=== PATIENT | female | born 1945 | race Caucasian/White ===

== ENCOUNTER → 2016-12-25 | Outpatient (CLI) | payer BC ==
[~2016-12-25] MED LIST: ACET-1311 PO; AMLO-110 PO; AMX500 PO; ASPI-427 PO; ATOR10TA88 PO; BNC40 PO; CHOL4POW11 PO; CHOLTAB3 PO; CIPR-255 PO; CZR50 PO; MELO15TA4 PO; OMEG5CAP PO; OXYC-57 PO; POTA1080 PO; PRLSR20 PO; TAMS0.4C38 PO; WHEAPOW13 PO
[2016-12-25 13:39] LABS: ALT/SGPT 24 U/L (12-78); AST/SGOT 16 U/L (15-37); BLOOD UREA NITROGEN 28 mg/dl (7-18); BUN/CREATININE RATIO 34.3 (10-20); CALCIUM 9.5 mg/dl (8.5-10.1); CARBON DIOXIDE 28 mmol/L (21-32); CHLORIDE 107 mmol/L (98-107); CHOLESTEROL 163 mg/dl (0-200); CREATININE 0.83 mg/dl (0.60-1.20); GLUCOSE 98 mg/dl (70-99); POTASSIUM 4.2 mmol/L (3.5-5.1); SODIUM 144 mmol/L (136-145)
[2016-12-25 13:48] LABS: CHOLESTEROL/HDL RATIO 2.1; HDL CHOLESTEROL 77 mg/dl; LDL CHOLESTEROL CALCULATED 52 mg/dl; TRIGLYCERIDES 169 mg/dl (0-150); VERY LOW DENSITY LIPOPROT CALC 34 mg/dl
== END | disposition home or self-care (01) ==
LOC: C.LABMFLN 12:03
PROVIDERS: ATTEND Family Medicine
DX: I10 Essential (primary) hypertension (principal); E78.5 Hyperlipidemia, unspecified

== ENCOUNTER → 2017-02-21 | Outpatient (CLI) | payer BC ==
[~2017-02-21] MED LIST changes: +ATOR10TA82 PO; -ATOR10TA88 PO
[2017-02-21 17:53] LABS: URINE COLOR ORANGE
[2017-02-21 17:54] LABS: SULFASALICYLIC ACID POS (NEG); URINE APPEARANCE CLOUDY (CLEAR)
[2017-02-21 17:55] LABS: MANUAL MICROSCOPIC REQUIRED? YES; REVIEW REQ? NO
[2017-02-21 17:56] LABS: URINE WBC >30 /hpf (0-5)
[2017-02-21 17:58] LABS: URINE BACTERIA 2+ (NEG)
== END | disposition home or self-care (01) ==
LOC: C.LABMFLN 13:53
PROVIDERS: ATTEND Family Medicine
DX: R39.15 Urgency of urination (principal)

== ENCOUNTER → 2017-04-16 | Outpatient (CLI) | payer BC ==
[2017-04-16 18:56] LABS: ALB/GLOB RATIO 1.1 (0.9-2); ALKALINE PHOSPHATASE 96 U/L (45-117); ALT/SGPT 29 U/L (12-78); AST/SGOT 25 U/L (15-37); BLOOD UREA NITROGEN 20 mg/dl (7-18); BUN/CREATININE RATIO 28.7 (10-20); CALCIUM 9.2 mg/dl (8.5-10.1); CARBON DIOXIDE 27 mmol/L (21-32); CHLORIDE 108 mmol/L (98-107); CHOLESTEROL 166 mg/dl (0-200); CREATININE 0.69 mg/dl (0.60-1.20); GLUCOSE 91 mg/dl (70-99); HDL CHOLESTEROL 85 mg/dl; LDL CHOLESTEROL CALCULATED 53 mg/dl; SODIUM 143 mmol/L (136-145); TRIGLYCERIDES 138 mg/dl (0-150); VERY LOW DENSITY LIPOPROT CALC 28 mg/dl
== END | disposition home or self-care (01) ==
LOC: C.LABMFLN 12:32
PROVIDERS: ATTEND Family Medicine
DX: I10 Essential (primary) hypertension (principal); E78.5 Hyperlipidemia, unspecified; M16.9 Osteoarthritis of hip, unspecified

== ENCOUNTER → 2017-06-11 | Outpatient (CLI) | payer BC ==
[~2017-06-11] MED LIST changes: -ATOR10TA82 PO; +ATOR10TA88 PO
[2017-06-11 17:59] LABS: BASO % 0.5 %; BASO ABS # 0.03 K/uL (0-0.2); COMPLETE YES; EOS % 2.7 %; HEMATOCRIT 41.7 % (37-47); IG% 0.2 %; LYMPH % 24.6 %; LYMPH ABS # 1.56 K/uL (1.2-3.4); MEAN CELL VOLUME 90.5 fL (80-100); MEAN CORPUSCULAR HEMOGLOBIN 29.9 pg (25-34); MEAN CORPUSCULAR HGB CONC 33.1 g/dl (32-36); MEAN PLATELET VOLUME 10.6 fL (7.4-10.4); MONO % 9.8 %; NEUT % 62.2 %; PLATELET COUNT 337 K/uL (130-400); RED BLOOD COUNT 4.61 M/uL (4.2-5.4); WHITE BLOOD COUNT 6.33 K/uL (4.8-10.8)
[2017-06-11 18:01] LABS: URINE APPEARANCE CLEAR (CLEAR); URINE BILIRUBIN NEG (NEG); URINE COLOR DK YELLOW; URINE EPITHELIAL CELL AUTO >30 /lpf (0-5); URINE NITRITE NEG (NEG); URINE SPECIFIC GRAVITY 1.025 (1.000-1.030); UROBILINOGEN NEG (NEG)
[2017-06-11 18:02] LABS: BLOOD UREA NITROGEN 21 mg/dl (7-18); BUN/CREATININE RATIO 25.4 (10-20); CALCIUM 9.5 mg/dl (8.5-10.1); CARBON DIOXIDE 27 mmol/L (21-32); CHLORIDE 104 mmol/L (98-107); CREATININE 0.83 mg/dl (0.60-1.20); GLUCOSE 103 mg/dl (70-99); POTASSIUM 3.8 mmol/L (3.5-5.1); SODIUM 139 mmol/L (136-145)
[2017-06-11 18:09] LABS: MANUAL MICROSCOPIC REQUIRED? NO; REVIEW REQ? YES
[2017-06-11 18:26] LABS: URINE MUCUS PRESENT (NONE PRSENT)
== END | disposition home or self-care (01) ==
LOC: C.LABMFLN 15:43
PROVIDERS: ATTEND Urology
DX: N20.0 Calculus of kidney (principal)

== ENCOUNTER → 2017-06-20 | Day surgery (SDC) | payer BC ==
[2017-06-12 13:51] VITALS: Ht 162.6 cm; Wt 106.4 kg
--- NOTE | 2017-06-17 11:46 | PAT Medication Instructions ---
Service Date Jun 17, 2017. Current Home Medication List Acetaminophen (Tylenol), 650 MG PO QID PRN for Pain Amlodipine (Norvasc), 5 MG PO NOON Amoxicillin (Amoxicillin), 2,000 MG PO UD PRN for PROPHALAXIS Aspirin (Ecotrin Regular Strength), 325 MG PO ON HOLD Atorvastatin (Lipitor), 10 MG PO QPM Cholestyramine (Questran), 1 DOSE PO QAM Ergocalciferol (Vitamin D), 400 INTER.UNIT PO 2XWK Losartan Potassium (Losartan Potassium), 50 MG PO NOON Meloxicam (Meloxicam), 15 MG PO ON HOLD [place]-3 Fatty Acids (Fish Oil 1200 mg), 2 CAP PO ON HOLD Omeprazole (Prilosec), 20 MG PO QAM Oxycodone/Acetaminophen 5MG/325MG (Percocet 5MG/325MG), 1-2 TABLETS PO Q4H PRN for Pain Potassium Citrate (Alkalinizer (Potassium Citrate ER), 3 TAB PO BID Tamsulosin Hcl (Flomax), 0.4 MG PO QAM Wheat Dextrin (Benefiber), 2 TSP PO DAILY Medication Instructions For Your Scheduled Surgery - On hold per surgeon's instructions: Meloxicam (Meloxicam), 15 MG PO ON HOLD [place]-3 Fatty Acids (Fish Oil 1200 mg), 2 CAP PO ON HOLD Aspirin (Ecotrin Regular Strength), 325 MG PO ON HOLD -Continue as directed: Ergocalciferol (Vitamin D), 400 INTER.UNIT PO 2XWK - Hold the following medications 24 hours prior to surgery: Cholestyramine (Questran), 1 DOSE PO QAM - Hold the following medications the morning of surgery: Losartan Potassium (Losartan Potassium), 50 MG PO NOON Wheat Dextrin (Benefiber), 2 TSP PO DAILY Potassium Citrate (Alkalinizer (Potassium Citrate ER), 3 TAB PO BID - Take the following medications the morning of surgery with a sip of water OTHERWISE NOTHING TO EAT OR DRINK AFTER MIDNIGHT: Acetaminophen (Tylenol), 650 MG PO QID PRN for Pain (may take up to 4 hours prior to surgery if needed) Oxycodone/Acetaminophen 5MG/325MG (Percocet 5MG/325MG), 1-2 TABLETS PO Q4H PRN for Pain (may take up to 4 hours prior to surgery if needed) Amlodipine (Norvasc), 5 MG PO NOON (time permitting) Omeprazole (Prilosec), 20 MG PO QAM Tamsulosin Hcl (Flomax), 0.4 MG PO QAM - Take the following medications as scheduled the night before surgery: Acetaminophen (Tylenol), 650 MG PO QID PRN for Pain Atorvastatin (Lipitor), 10 MG PO QPM Potassium Citrate (Alkalinizer (Potassium Citrate ER), 3 TAB PO BID Oxycodone/Acetaminophen 5MG/325MG (Percocet 5MG/325MG), 1-2 TABLETS PO Q4H PRN for Pain If you have any questions please call us at [phone] or [phone] or [phone]
--- NOTE | 2017-06-17 13:03 | DIAGNOSTIC IMAGING REPORT ---
CHEST PREADMISSION(PA/LAT) HISTORY: Preop. COMPARISON: Chest 01/16/2016. FINDINGS: The lungs are clear. Cardiac silhouette is normal in size. No pleural effusions. No pneumothorax. IMPRESSION: No acute process. Electronically signed by: Hima Rao M.D. 06/17/2017 1:02 PM Dictated Date/Time: 06/17/2017 1:01 PM
[2017-06-17 13:08] LABS: HEMATOCRIT 42.2 % (37-47); MEAN CELL VOLUME 90.2 fL (80-100); MEAN CORPUSCULAR HEMOGLOBIN 29.1 pg (25-34); MEAN CORPUSCULAR HGB CONC 32.2 g/dl (32-36); MEAN PLATELET VOLUME 10.4 fL (7.4-10.4); PLATELET COUNT 339 K/uL (130-400); RED BLOOD COUNT 4.68 M/uL (4.2-5.4); WHITE BLOOD COUNT 8.83 K/uL (4.8-10.8)
[2017-06-17 13:36] LABS: URINE APPEARANCE CLEAR (CLEAR); URINE BILIRUBIN NEG (NEG); URINE COLOR YELLOW; URINE NITRITE NEG (NEG); URINE PH 5.5 (4.5-7.5); URINE SPECIFIC GRAVITY 1.026 (1.000-1.030); UROBILINOGEN NEG (NEG)
[2017-06-17 13:46] LABS: MANUAL MICROSCOPIC REQUIRED? NO; REVIEW REQ? NO
[2017-06-17 14:10] LABS: CREATININE 0.71 mg/dl (0.60-1.20)
[~2017-06-20] VITALS: Ht 162.6 cm; Wt 106.4 kg
[~2017-06-20] MED LIST changes: +ATROPINE SULFATE 0.1 MG/ML 5ML SYR IV PRN; -BNC40 PO; -CIPR-255 PO; +CIPROFLOXACIN 400MG / D5W IV SCH; +DEXAMETHASONE SOD INJ 4 MG/ML VIAL IV PRN; +DEXAMETHASONE SOD INJ 4 MG/ML VIAL ONE; +EpHEDrine SULFATE INJ 50 MG/ML AMP IV PRN; +FENTANYL CITRATE INJ 50 MCG/1 ML 2 ML VIAL IV PRN; +FENTANYL CITRATE INJ 50 MCG/1 ML 2 ML VIAL ONE; +KETOROLAC TROMETHAMINE 15 MG/ML VIAL IV. PRN; +KETOROLAC TROMETHAMINE 30 MG/ML VIAL ONE; +LABETALOL HCL IV 5 MG/ML 20ML IV PRN; +LACTATED RINGER'S 1000ML 1,000 ML IV SCH; +LIDOCAINE HCL 2% 2 ML VIAL (20MG/ML) ONE; +METOCLOPRAMIDE HCL INJ 5 MG/ML 2 ML VIAL IV PRN; +MIDAZOLAM HCL 1 MG/ML 2ML VIAL ONE; +MoRPHine SULFATE 10 MG/ML CARP/VIAL IV PRN; +ONDANSETRON INJ 2 MG/ML 2 ML VIAL IV PRN; +ONDANSETRON INJ 2 MG/ML 2 ML VIAL ONE; +OXYCODONE/ACETAMINOPHEN 5-325 TAB PO PRN; +PHENYLEPHRINE 100MCG/ML 5ML SYR IV PRN; +PROPOFOL IV EMULSION 10 MG/ML 20 ML VIAL IV ONE
--- NOTE | 2017-06-20 09:00 | History & Physical Bridge Note ---
H&P Re-Evaluation Bridge Note: I have examined the patient, reviewed the History & Physical and in the interval since the performance of the History & Physical I have noted the following changes of clinical significance: No changes noted
--- NOTE | 2017-06-20 09:51 | Discharge Instructions-SurgCtr ---
Discharge Instructions Date of Service Jun 20, 2017. Visit Reason for Visit: Stones Discharge Discharge Diagnosis / Problem: URETERAL STONE Discharge Goals Goal(s): Therapeutic intervention Medications Stopped Medications Name(s): meloxicam, fish oil, ASA all stopped more than a week ago Activity Recommendations Activity Limitations: resume your previous activity (TAKE IT EASY TODAY) MEDICATIONS: Resume previous medications unless instructed otherwise by your surgeon. Resume pre-ES[facility] medication except for aspirin, coumadin or other blood thinners. __ Toradol 10 mg every 6 hours for initial pain. __ Lortab 5 mg 1-2 every 4 hours for pain. _X_ Percocet 5 mg 1-2 every 4 hours for pain. __ Macrodantin 50 mg x 3 a day. __ Flomax 1 tab daily one half (1/2) hour after supper. SPECIAL CARE INSTRUCTIONS: 1. Get KUB (x-ray) _X_ day before or day of office visit and bring x-ray to office __ get x-ray 2 days before and tell office you are getting x-rays when you call for the appointment. 2. Strain ALL urine. 3. Please call if you have a fever, chills, severe pain, or constant dribbling of urine. 4. Office phone number . FOLLOW UP VISIT: Please call the office to schedule a follow-up appointment at . Anesthesia . Post Anesthesia Instructions: If you have had General Anesthesia or IV Sedation: * Do not drive today. * Resume driving when surgeon permits. * Do not make important decisions or sign legal documents today. * Call surgeon for: 1. Temperature elevations greater than 101 degrees F. 2. Uncontrollable pain. 3. Excessive bleeding. 4. Persistent nausea and vomiting. 5. Medication intolerance (nausea, vomiting or rash). * For nausea and vomiting use only clear liquids such as: tea, soda, bouillon until nausea subsides, then gradually increase diet as tolerated. * If you have any concerns or questions, call your surgeon's office. If physician is unavailable and it is an emergency, call 911 or go to the nearest emergency room. . Diet Recommendations Home Diet: resume previous diet Pending Studies Studies pending at discharge: no Medical Emergencies . Who to Call and When: Medical Emergencies: If at any time you feel your situation is an emergency, please call 911 immediately. . Non-Emergent Contact Non-Emergency issues call your: Urologist Call Non-Emergent contact if: temperature is above 101.5, your pain is not controlled . . "Provider Documentation" section prepared by Ortega Romero. . [place] Drug Monitoring Program Search Results: patient reviewed within database
--- NOTE | 2017-06-20 09:53 | [facility] Operative Report ---
Operative Report Operative Date Jun 20, 2017. Pre-Operative Diagnosis RIGHT UPJ STONE Post-Operative Diagnosis SAME Procedure(s) Performed RIGHT ESWL Surgeon ILAN Paint And Table Edger Surgeon(s) NONE Estimated Blood Loss NONE Findings RIGHT UPJ STONE Specimens NONE Drains NONE Anesthesia GENERAL Complication(s) None Disposition Recovery Room / PACU Indications RIGHT UPJ STONE Description of Procedure Patient was identified in the preoperative holding area, appropriate informed consent was reviewed and completed and the patient was transported to the operating suite. Upon arrival appropriate preoperative antibiotics were administered and general anesthesia induced. The patient was placed in supine position and the stone was localized under fluoroscopy. A total of [_2500__] shocks were delivered to the stone. There appeared to be good fragmentation of the stone. Details of this procedure can be found on the [facility] information sheet. At the conclusion of the case the patient was extubated and taken to the PACU in stable condition. There were no complications. I attest to the content of the Intraoperative Record and any orders documented therein. Any exceptions are noted below.
[2017-06-20 11:18] VITALS: TEMP 36.7
[2017-06-20 11:39] VITALS: BP 133/80; PULSE 87; O2SAT 96
--- NOTE | 2017-06-20 11:42 | Anesthesia Progress Nt - [facility] ---
Anesthesia Post Op Note Date & Time Jun 20, 2017 at 11:42 Vital Signs Pain Intensity: 0 Vital Signs Past 12 Hours Date Time Temp Pulse Resp B/P (MAP) Pulse Ox O2 Delivery O2 Flow Rate FiO2 06/20/17 11:39 87 20 133/80 (97) 96 Room Air 06/20/17 11:18 36.7 88 20 121/70 (87) 97 Room Air 06/20/17 11:11 78 12 131/65 96 06/20/17 11:11 76 12 06/20/17 11:09 36.6 72 12 131/65 96 Room Air 06/20/17 11:06 68 14 129/64 94 06/20/17 11:06 68 14 06/20/17 11:01 77 17 128/74 93 06/20/17 11:01 78 17 06/20/17 10:56 71 10 126/69 99 06/20/17 10:56 71 10 06/20/17 10:51 72 16 06/20/17 10:51 71 16 127/69 98 06/20/17 10:46 72 18 06/20/17 10:46 69 18 129/66 99 06/20/17 10:41 70 14 128/72 99 06/20/17 10:41 70 14 06/20/17 10:36 80 24 06/20/17 10:36 81 24 132/73 99 06/20/17 10:31 88 133/69 97 06/20/17 10:31 88 06/20/17 10:31 36.5 81 12 133/69 99 Mask 6 06/20/17 07:59 36.5 103 20 160/89 (112) 94 Room Air Notes Mental Status: alert / awake / arousable, participated in evaluation Pt Amnestic to Procedure: Yes Nausea / Vomiting: adequately controlled Pain: adequately controlled Airway Patency, RR, SpO2: stable & adequate BP & HR: stable & adequate Hydration State: stable & adequate Anesthetic Complications: no major complications apparent
== END | disposition home or self-care (01) ==
LOC: X.SURG 07:39
PROVIDERS: ATTEND Urology
DX: N20.1 Calculus of ureter (principal); I10 Essential (primary) hypertension; E78.5 Hyperlipidemia, unspecified; K21.9 Gastro-esophageal reflux disease without esophagitis; Z79.82 Long term (current) use of aspirin; Z79.899 Other long term (current) drug therapy

== ENCOUNTER → 2017-06-25 | Outpatient (CLI) | payer BC ==
[~2017-06-25] MED LIST changes: -ATROPINE SULFATE 0.1 MG/ML 5ML SYR IV PRN; -CIPROFLOXACIN 400MG / D5W IV SCH; -DEXAMETHASONE SOD INJ 4 MG/ML VIAL IV PRN; -DEXAMETHASONE SOD INJ 4 MG/ML VIAL ONE; -EpHEDrine SULFATE INJ 50 MG/ML AMP IV PRN; -FENTANYL CITRATE INJ 50 MCG/1 ML 2 ML VIAL IV PRN; -FENTANYL CITRATE INJ 50 MCG/1 ML 2 ML VIAL ONE; -KETOROLAC TROMETHAMINE 15 MG/ML VIAL IV. PRN; -KETOROLAC TROMETHAMINE 30 MG/ML VIAL ONE; -LABETALOL HCL IV 5 MG/ML 20ML IV PRN; -LACTATED RINGER'S 1000ML 1,000 ML IV SCH; -LIDOCAINE HCL 2% 2 ML VIAL (20MG/ML) ONE; -METOCLOPRAMIDE HCL INJ 5 MG/ML 2 ML VIAL IV PRN; -MIDAZOLAM HCL 1 MG/ML 2ML VIAL ONE; -MoRPHine SULFATE 10 MG/ML CARP/VIAL IV PRN; -ONDANSETRON INJ 2 MG/ML 2 ML VIAL IV PRN; -ONDANSETRON INJ 2 MG/ML 2 ML VIAL ONE; -OXYCODONE/ACETAMINOPHEN 5-325 TAB PO PRN; -PHENYLEPHRINE 100MCG/ML 5ML SYR IV PRN; -PROPOFOL IV EMULSION 10 MG/ML 20 ML VIAL IV ONE
== END | disposition home or self-care (01) ==
LOC: C.LABMFLN 12:09
PROVIDERS: ATTEND Family Medicine
DX: N23 Unspecified renal colic (principal)

== ENCOUNTER → 2017-07-02 | Outpatient (CLI) | payer BC | END | disposition home or self-care (01) | LOC: C.LABSPEC 10:54 | PROVIDERS: ATTEND Urology | DX: N20.0 Calculus of kidney (principal) ==

== ENCOUNTER → 2017-07-30 | Outpatient (CLI) | payer BC ==
[2017-07-30 18:23] LABS: ALT/SGPT 22 U/L (12-78); BLOOD UREA NITROGEN 22 mg/dl (7-18); CALCIUM 9.7 mg/dl (8.5-10.1); CARBON DIOXIDE 30 mmol/L (21-32); CHLORIDE 105 mmol/L (98-107); CHOLESTEROL 147 mg/dl (0-200); CREATININE 0.74 mg/dl (0.60-1.20); GLUCOSE 97 mg/dl (70-99); POTASSIUM 3.9 mmol/L (3.5-5.1); SODIUM 140 mmol/L (136-145)
[2017-07-30 18:26] LABS: ALB/GLOB RATIO 1.1 (0.9-2); ALKALINE PHOSPHATASE 98 U/L (45-117); AST/SGOT 20 U/L (15-37); CHOLESTEROL/HDL RATIO 1.9; HDL CHOLESTEROL 78 mg/dl; LDL CHOLESTEROL CALCULATED 44 mg/dl; TRIGLYCERIDES 123 mg/dl (0-150); VERY LOW DENSITY LIPOPROT CALC 25 mg/dl
== END | disposition home or self-care (01) ==
LOC: C.LABMFLN 12:10
PROVIDERS: ATTEND Family Medicine
DX: I10 Essential (primary) hypertension (principal); E78.5 Hyperlipidemia, unspecified

== ENCOUNTER → 2017-09-08 | Outpatient (CLI) | payer BC ==
[~2017-09-08] MED LIST changes: +ATOR10TA82 PO; -ATOR10TA88 PO
== END | disposition home or self-care (01) ==
LOC: C.RDSM 16:02
PROVIDERS: ATTEND Physical Medicine & Rehabilitation Sports Medicine
DX: M25.551 Pain in right hip (principal); M25.552 Pain in left hip

== ENCOUNTER 2017-12-16 06:04 | Inpatient (IN) | payer BC, OTHER ==
[2017-11-20 14:58] VITALS: BMI 35.0
--- NOTE | 2017-11-20 15:24 | PAT Medication Instructions ---
Service Date Nov 20, 2017. Current Home Medication List Acetaminophen (Tylenol Arthritis Ext Rel), 1,300 MG PO Q8H PRN for PRN Amlodipine (Norvasc), 5 MG PO QAM Amoxicillin (Amoxicillin), 2,000 MG PO UD PRN for PROPHALAXIS Aspirin (Ecotrin Regular Strength), 325-650 MG PO PRN Atorvastatin (Lipitor), 10 MG PO QPM Cholestyramine (Questran), 1 DOSE PO QAM Losartan Potassium (Losartan Potassium), 50 MG PO QAM Meloxicam (Meloxicam), 15 MG PO NOON Mirabegron (Myrbetriq Er), 50 MG PO QPM [place]-3 Fatty Acids (Fish Oil 1200 mg), 1 CAP PO QAM Omeprazole (Prilosec), 20 MG PO QAM Potassium Citrate (Alkalinizer (Potassium Citrate ER), 3 TAB PO BID Wheat Dextrin (Benefiber), 2 TSP PO DAILY PRN for PRN [Vitamin D3], 400 UNITS PO TUES/THURS Medication Instructions For Your Scheduled Surgery - Hold the following medications 2 weeks prior to surgery: [place]-3 Fatty Acids (Fish Oil 1200 mg), 1 CAP PO QAM - Check with surgeon for instructions: Meloxicam (Meloxicam), 15 MG PO NOON Aspirin (Ecotrin Regular Strength), 325-650 MG PO PRN - Hold the following medications the morning of surgery: Cholestyramine (Questran), 1 DOSE PO QAM Losartan Potassium (Losartan Potassium), 50 MG PO QAM Potassium Citrate (Alkalinizer (Potassium Citrate ER), 3 TAB PO BID Wheat Dextrin (Benefiber), 2 TSP PO DAILY PRN for PRN [Vitamin D3], 400 UNITS PO TUES/THURS Amoxicillin (Amoxicillin), 2,000 MG PO UD PRN for PROPHALAXIS - Take the following medications the morning of surgery with a sip of water: Omeprazole (Prilosec), 20 MG PO QAM Amlodipine (Norvasc), 5 MG PO QAM Acetaminophen (Tylenol Arthritis Ext Rel), 1,300 MG PO Q8H PRN for PRN (okay to take up to 4 hours prior to surgery if needed) - Take the following medications as scheduled the night before surgery: Wheat Dextrin (Benefiber), 2 TSP PO DAILY PRN for PRN (if needed) Potassium Citrate (Alkalinizer (Potassium Citrate ER), 3 TAB PO BID Mirabegron (Myrbetriq Er), 50 MG PO QPM Atorvastatin (Lipitor), 10 MG PO QPM Acetaminophen (Tylenol Arthritis Ext Rel), 1,300 MG PO Q8H PRN for PRN (if needed) Amoxicillin (Amoxicillin), 2,000 MG PO UD PRN for PROPHALAXIS (if needed) If you have any questions please call us at [phone] or [phone] or [phone]
[2017-11-20 16:13] LABS: BASO ABS # 0.07 K/uL (0-0.2); EOS % 2.3 %; EOS ABS # 0.16 K/uL (0-0.5); HEMATOCRIT 44.3 % (37-47); HEMOGLOBIN 14.9 g/dL (12.0-16.0); IG# 0.01 K/uL (0.00-0.02); LYMPH % 24.8 %; LYMPH ABS # 1.72 K/uL (1.2-3.4); MEAN CELL VOLUME 91.3 fL (80-100); MEAN CORPUSCULAR HEMOGLOBIN 30.7 pg (25-34); MEAN CORPUSCULAR HGB CONC 33.6 g/dl (32-36); MEAN PLATELET VOLUME 10.6 fL (7.4-10.4); MONO % 6.8 %; MONO ABS # 0.47 K/uL (0.11-0.59); NEUT ABS # 4.51 K/uL (1.4-6.5); PLATELET COUNT 247 K/uL (130-400); RED CELL DISTRIBUTION WIDTH CV 13.6 % (11.5-14.5); WHITE BLOOD COUNT 6.94 K/uL (4.8-10.8)
[2017-11-20 16:24] LABS: PTT PATIENT 26.8 SECONDS (21.0-31.0)
[2017-11-20 16:35] LABS: CALCIUM 9.7 mg/dl (8.5-10.1); CREATININE 0.69 mg/dl (0.60-1.20); POTASSIUM 3.9 mmol/L (3.5-5.1)
--- NOTE | 2017-11-24 15:58 | HISTORY & PHYSICAL EXAMINATION ---
DATE OF ADMISSION: 12/17/2017 CHIEF COMPLAINT: Left hip pain. HISTORY OF PRESENT ILLNESS: This 72-year-old white female presented to the office with complaints of bilateral hip pain, left being worse. Her hip pain is longstanding and has been present for several years. At this point, she is chair bound due to arthritis. Pain is anterior and is worse with any attempted motion or weightbearing. Pain is affecting her ADLs. She elects to proceed with total hip arthroplasty on the left in hopes of improving her mobility and alleviating her pain. Preoperative imaging has been obtained. She has undergone previous total knee arthroplasties successfully. PAST MEDICAL HISTORY: Significant for hypertension, elevated cholesterol, osteoarthritis, low back pain, neck pain, GERD, obesity, and a history of kidney stones. PREVIOUS SURGERIES: Bilateral total knee arthroplasties in November 2002, cholecystectomy in August 2003, ureteroscopy in June 2001 and May 2015, lithotripsy in June 2017 and breast biopsy in September 2007. SOCIAL HISTORY: The patient is retired. No tobacco use and no ETOH use. ALLERGIES: NKDA. FAMILY HISTORY: Noncontributory. CURRENT MEDICATIONS: Tylenol extra strength q. 6 hours p.r.n., amlodipine 5 mg p.o. daily, aspirin 325 mg p.o. daily, atorvastatin 10 mg p.o. daily, vitamin D daily, cholestyramine 4 grams p.o. daily, losartan 50 mg p.o. daily, meloxicam 15 mg p.o. daily, mirabegron 50 mg p.o. daily, Prilosec 20 mg p.o. daily, potassium citrate daily, and Benefiber daily. REVIEW OF SYSTEMS: Significant for above stated conditions, otherwise unremarkable. PHYSICAL EXAMINATION: GENERAL: Well-developed and well-nourished elderly white female, in no acute distress. Sitting in a wheelchair. Alert and oriented. SKIN: Warm and dry with fair turgor. No rashes or lesions. No ecchymosis or erythema. HEENT: Normocephalic and atraumatic. Eyes: PERRLA and EOMI. Nares patent bilaterally without turbinate enlargement. Oropharynx is without erythema or exudate. No lesions noted. Uvula midline. Oral mucosa moist. Fair dentition. HEART: RRR. No MGR. LUNGS: Clear to auscultation bilaterally. No crackles, rhonchi or wheezing. Good air movement. ABDOMEN: Obese. Bowel sounds present x4. Soft and nontender. No organomegaly. No masses. MUSCULOSKELETAL: Left hip has no obvious asymmetry or deformity. She has very limited motion secondary to pain. Flexion is only to 90 degrees. She is able to stand. Very little internal or external rotation secondary to pain and stiffness. Intact motion to the knee without difficulty. NEUROLOGIC: Cranial nerves II through XII are intact. Gross sensation is intact across the lower extremities by soft touch. DATA: Radiographic imaging previously obtained shows endstage DJD of both hips with marked chondrocalcinosis about the hip joint. Significant periarticular osteophytes and subchondral sclerosis were also present. IMPRESSION: Left hip end-stage degenerative joint disease. PLAN: Postoperative prescriptions for Percocet and Coumadin will be provided at discharge from the hospital. Anticipate discharge to home with home health services and then outpatient PT. She will obtain medical clearance from her PCP, Dr. Martin. Preoperative lab work, EKG, and chest x-ray have been ordered. She has been attempting to lose weight and has lost about 18 pounds since early October. She will continue to try weight management. Informed written consent to proceed with left total hip arthroplasty may be obtained on the day of surgery.
[~2017-12-16] VITALS: Ht 162.6 cm; Wt 90.5 kg
[2017-12-16] VITALS (9 sets, daily range): BP systolic 112–140; BP diastolic 65–80; PULSE 97–108; TEMP 36.6–36.8; O2SAT 97–100; Ht 162.6 cm; Wt 90.5 kg
[~2017-12-16 06:04] MED LIST changes: -ACET-1311 PO; +ACET-1487 PO; +CEFAZOLIN 2000MG IV PUSH 15 ML IV SCH; -CHOLTAB3 PO; +LACTATED RINGER'S 1000ML 1,000 ML IV SCH; +LACTATED RINGER'S 1000ML 500 ML IV SCH; +LACTATED RINGER'S 1000ML IV SCH; +MIRA1TAB3 PO; -OXYC-57 PO; -TAMS0.4C38 PO; +TRANEXAMIC ACID INJ 1,000 MG in SYRINGE 0 ML IV SCH; +VITAMIN D3 PO
[2017-12-16] MEDS ORDERED: BUPIVACAINE 0.5 % 5 MG/1 ML PF 10ML VIAL ONE (06:33)
--- NOTE | 2017-12-16 06:37 | History & Physical Bridge Note ---
H&P Re-Evaluation Bridge Note: I have examined the patient, reviewed the History & Physical and in the interval since the performance of the History & Physical I have noted the following changes of clinical significance:consent obtained,all questions answered. No changes noted
[2017-12-16] MEDS ORDERED: LIDOCAINE HCL 2% 2 ML VIAL (20MG/ML) ONE (07:36)
[2017-12-16] MEDS ORDERED: ONDANSETRON INJ 2 MG/ML 2 ML VIAL ONE (07:36)
[2017-12-16] MEDS ORDERED: PROPOFOL IV EMULSION 10 MG/ML 20 ML VIAL IV ONE ×2 (07:36→10:48)
[2017-12-16] MEDS ORDERED: DEXAMETHASONE SOD INJ 4 MG/ML VIAL ONE (07:36)
[2017-12-16] MEDS ORDERED: MIDAZOLAM HCL 1 MG/ML 2ML VIAL ONE ×3 (07:37→09:10)
[2017-12-16] MEDS ORDERED: FENTANYL CITRATE INJ 50 MCG/1 ML 2 ML VIAL ONE (07:37)
[2017-12-16] MEDS ORDERED: POVIDONE-IODINE OP SOLN 30 ML BTL ONE (08:41)
[2017-12-16] MEDS ORDERED: ORTHO JOINT ANESTHETIC ONE (08:41)
[2017-12-16] MEDS ORDERED: ONDANSETRON INJ 2 MG/ML 2 ML VIAL IV PRN (08:45)
[2017-12-16] MEDS ORDERED: PHENYLEPHRINE 100MCG/ML 5ML SYR IV PRN (08:45)
[2017-12-16] MEDS ORDERED: EpHEDrine SULFATE INJ 50 MG/ML AMP IV PRN (08:45)
[2017-12-16] MEDS ORDERED: FLUMAZENIL 0.1 MG/1 ML 10 ML VIAL IV PRN (08:45)
[2017-12-16] MEDS ORDERED: ATROPINE SULFATE 0.1 MG/ML 5ML SYR IV PRN (08:45)
[2017-12-16] MEDS ORDERED: LABETALOL HCL IV 5 MG/ML 20ML IV PRN (08:45)
[2017-12-16] MEDS ORDERED: NALOXONE HCL 0.4 MG/1 ML VIAL/CARP IV PRN (08:45)
[2017-12-16] MEDS ORDERED: FENTANYL CITRATE INJ 50 MCG/1 ML 2 ML VIAL IV PRN (08:45)
[2017-12-16] MEDS ORDERED: HYDROmorphone INJ 2 MG/ML SYR/VIAL IV PRN (08:45)
[2017-12-16] MEDS ORDERED: MEPERIDINE HCL 25 MG/ML CARP IV PRN (08:45)
[2017-12-16] MEDS: ROPIVACAINE 5MG/ML 30 ML 150 MG, BUPIVACAINE/EPINEPHR 0.5% MPF 30 ML, KETOROLAC TROMETH... INFIL SCH ×7 (10:17)
--- NOTE | 2017-12-16 10:33 | [facility] Post Operative Brief Note ---
Immediate Operative Summary Operative Date Dec 16, 2017. Pre-Operative Diagnosis Left Hip End-Stage Degenerative Joint Disease Post-Operative Diagnosis Left Hip End-Stage Degenerative Joint Disease Procedure(s) Performed Left Total Hip Arthroplasty--Uncemented Surgeon Dr. Carbajal Clinical Pharmacologist Surgeon(s) DORIS Dickerson Estimated Blood Loss 100 ml Findings Consistent with Post-Op Diagnosis Fluids (cc crystalloids) 1800cc Specimens A. Left Femoral Head Drains None Anesthesia Type Spinal MAC Complication(s) none Disposition Disposition: Recovery Room / PACU
[2017-12-16] MEDS ORDERED: MoRPHine SULFATE 2 MG/ML CARP IV PRN (10:45)
[2017-12-16] MEDS ORDERED: DiphenhydrAMINE HCL 50 MG/ML VIAL IV PRN (10:45)
[2017-12-16] MEDS ORDERED: NURSING VERBAL MED ORDER ONE (10:45)
[2017-12-16] MEDS ORDERED: METOCLOPRAMIDE HCL INJ 5 MG/ML 2 ML VIAL IV PRN (10:45)
[2017-12-16] MEDS ORDERED: ACETAMINOPHEN 325 MG TAB PO PRN (10:45)
[2017-12-16] MEDS ORDERED: MAGNESIUM HYDROXIDE SUSP 30 ML UDC PO PRN (10:45)
--- NOTE | 2017-12-16 10:47 | OPERATIVE REPORT ---
DATE OF OPERATION: 12/16/2017 SURGEON: Cachorro Carbajal MD REFINERY OPERATOR [employer]: Wolf Smith PA-C. No resident or fellow available. SECOND REFINERY OPERATOR [employer]: Concepción Moss. PREOPERATIVE DIAGNOSIS: Severe osteoarthritis, left hip. POSTOPERATIVE DIAGNOSIS: Same. OPERATION PERFORMED: Noncemented left total hip replacement. PERIOPERATIVE SITUATION: Medically cleared female with intractable issues and pain, concerning multiple joint involvement including knees, back and hips. At this point in time, hip x-rays revealed end-stage disease with marginal osteophytes and significant stiffness. The subchondral cysts are also noted. DESCRIPTION OF PROCEDURE: The patient was properly identified, site verified, consent verified, and 2 grams of Ancef confirmed as being given. The left lower extremity was prepped and draped in the usual routine fashion with the patient in right lateral decubitus position. The posterior approach to the hip was then utilized. Sharp dissection was carried through skin and blunt dissection down to the fascia. This was then incised under direct vision. A Charnley retractor placed. The short external rotators were then released as well as the capsule opened and there was marked contracture osteophytes and marginal overgrowth of the acetabulum. This was all excised with osteophyte excision. The hip was then dislocated. The femoral neck resected. Excellent exposure was obtained. Serial reaming carried up to a 52 and a 52 cup impacted into appropriate anteversion and inclination with good rim fit with a 6.5 x 30 screw plates with excellent purchase. A trial liner seated. The femur was then flexed and internally rotated and delivered into the wound. Serial broaching and rasping carried up to a size 4. A stove pipe type femur was noted proximally, tight distally and had a good fit distally. No rotational issues with a size 4. A trial reduction carried out with a +5 and a +8.5. and 8.5 gave us equal lengths. Stability was excellent with both. Trial implants were then removed. Everything irrigated with Betadine Pulsavac. Hole eliminator seated. The permanent liner seated. Permanent head and stem seated. The hip reduced. No issues with any entrapped tissue. Excellent range of motion and excellent stability. The wound irrigated with Betadine and then closed with #2 Vicryl for the fascial layers, 2-0 Vicryl for the subcutaneous layer and stainless steel clips for skin. Appropriate soft tissue dressing applied. ESTIMATED BLOOD LOSS: 100 mL. CRYSTALLOID: 1800 mL. SUMMARY OF IMPLANTS: Hole eliminator, size 52 acetabular shell sector cup, cancellous screw 6.5 x 30, acetabular liner 36 x 52, neutral 4 Tri-Lock high offset, 36+8.5 head. EBL 100 mL. Pathology of all bone removed. DVT prophylaxis with Coumadin. We will use Prevena based on wound size and based on subcutaneous size. I attest to the content of the Intraoperative Record and any orders documented therein. Any exceptions are noted below. MTDD
--- NOTE | 2017-12-16 10:54 | [facility] Operative Report ---
Operative Report Operative Date Dec 16, 2017. Pre-Operative Diagnosis Left Hip End-Stage Degenerative Joint Disease Post-Operative Diagnosis Left Hip End-Stage Degenerative Joint Disease Procedure(s) Performed Left Total Hip Arthroplasty--Uncemented Surgeon Dr. Carbajal Log Washer Surgeon(s) DORIS Lazaro Estimated Blood Loss 100 ml Findings left hip DJD Fluids 1800cc Specimens A. Left Femoral Head Drains None Anesthesia Type Spinal MAC Complication(s) none Disposition Recovery Room / PACU Indications This 72-year-old white female presented to the office with complaints of intractable bilateral hip pain. Left was worse than right. She had tried conservative care measures without success. She was essentially wheelchair- bound due to pain. Patient elected to proceed with surgical intervention after being educated about potential risks and outcomes. Preoperative imaging was obtained. Description of Procedure Patient was administered a spinal anesthetic and then taken to the operating room where she was given sedation. She was prepped and draped in usual sterile fashion. Please see Dr. Carbajal's operative report for specifics of the procedure. I was present for the entire case from initial patient positioning through final wound closure. Assistance was provided in tissue traction, hemostasis, trial implant placement, final implant placement, and final wound closure. Patient was taken to the recovery room in satisfactory condition. I attest to the content of the Intraoperative Record and any orders documented therein. Any exceptions are noted below.
--- NOTE | 2017-12-16 11:27 | DIAGNOSTIC IMAGING REPORT ---
PELVIS 1 OR 2 VIEW ROUTINE CLINICAL HISTORY: 72 years-old Female presenting with s/p Left hip MYRANDA. TECHNIQUE: Single frontal view the pelvis was obtained. COMPARISON: CT of the abdomen and pelvis from 01/16/2016. FINDINGS: Interval total left hip arthroplasty. No periprosthetic fracture. Expected intra-articular and soft tissue emphysema. No malalignment or hardware complication. Advanced degenerative changes of the right hip joint with joint space loss and subchondral sclerosis and cystic change in both the right humeral head and acetabulum. Visualized portion of the bony pelvis intact. Osteopenia suggested. IMPRESSION: Expected postoperative findings of total left hip arthroplasty. Electronically signed by: Yoel Berry M.D. 12/16/2017 11:26 AM Dictated Date/Time: 12/16/2017 11:25 AM
--- NOTE | 2017-12-16 11:36 | Anesthesiology Progress Note ---
Anesthesia Post Op Note Date & Time Dec 16, 2017 at 11:36 Vital Signs Pain Intensity: 1 Vital Signs Past 12 Hours Date Time Temp Pulse Resp B/P (MAP) Pulse Ox O2 Delivery O2 Flow Rate FiO2 12/16/17 11:30 93 18 108/72 98 Nasal Cannula 2 12/16/17 11:20 36.1 89 19 121/74 99 Nasal Cannula 2 12/16/17 11:10 91 16 122/69 99 Nasal Cannula 2 12/16/17 11:00 94 17 116/72 99 Nasal Cannula 2 12/16/17 10:50 119 15 116/55 100 Nasal Cannula 2 12/16/17 10:43 36.2 92 16 111/66 100 Oxymask 10 12/16/17 06:41 36.7 101 18 140/80 98 Room Air Notes Mental Status: alert / awake / arousable, participated in evaluation Pt Amnestic to Procedure: Yes Nausea / Vomiting: adequately controlled Pain: adequately controlled Airway Patency, RR, SpO2: stable & adequate BP & HR: stable & adequate Hydration State: stable & adequate Neuraxial Anesthesia: was administered, sensory block is resolving Anesthetic Complications: no major complications apparent
[2017-12-16] MEDS ORDERED: LEVOFLOXACIN 750 MG TAB PO ONE (12:15)
[2017-12-16] MEDS ORDERED: MoRPHine SULFATE 4 MG/ML 1 ML CARP\\VIAL IV PRN (13:15)
[2017-12-16] MEDS ORDERED: D5W AND 1/2NSS + 20MEQ KCL 1,000 ML IV SCH (13:15)
[2017-12-16] MEDS ORDERED: WARF2TAB PO (13:23)
[2017-12-16] MEDS ORDERED: OXYC-57 PO (13:23)
[2017-12-16] MEDS: KETOROLAC TROMETHAMINE 15 MG/ML VIAL IV. SCH ×2 (13:46→18:08)
[2017-12-16] MEDS: ACETAMINOPHEN IV 1,000 MG in EMPTY BAG 0 ML IV SCH ×2 (13:46→22:06)
[2017-12-16] MEDS ORDERED: WARFARIN SOD 5 MG TAB PO SCH (16:00)
[2017-12-16] MEDS ORDERED: TRANEXAMIC ACID INJ 1,000 MG in SODIUM CHLORIDE 0.9% 100ML 100 ML IV SCH (16:30)
--- NOTE | 2017-12-16 17:22 | PROGRESS NOTE ---
DATE: 12/16/2017 Doing well, postop check, status post left total hip replacement. Denies chest pain, shortness of breath, fever, chills, nausea, vomiting or headache. She is eating well. Vital signs are stable. She is afebrile. The femoral sciatic nerve is intact. Wound dressing is clean, dry and intact. Calves nontender. Abdomen nontender. X-rays postop look excellent. ASSESSMENT: Doing well. Continue with postop care pathway. Hep-Lock IV fluid. Coumadin per nomogram.
[2017-12-16] MEDS: FERROUS GLUCONATE 324 MG TAB PO SCH (18:07)
[2017-12-16] MEDS: OXYCODONE HCL IR 5 MG TAB (IMMEDIATE RELEASE) PO PRN (19:05)
[2017-12-16] MEDS: MoRPHine SULFATE 2 MG/ML CARP IV PRN (20:53)
[2017-12-16] MEDS: POTASSIUM CITRATE 10 MEQ TAB PO SCH (20:55)
[2017-12-16] MEDS: DOCUSATE SODIUM 100 MG CAP PO SCH (20:55)
[2017-12-16] MEDS: ATORVASTATIN 10 MG TAB PO SCH (20:55)
[2017-12-16] MEDS: MIRABEGRON ER 25 MG TAB PO SCH (20:56)
[2017-12-16] MEDS: ONDANSETRON INJ 2 MG/ML 2 ML VIAL IV PRN (22:05)
[2017-12-17] MEDS: KETOROLAC TROMETHAMINE 15 MG/ML VIAL IV. SCH ×2 (00:18→06:33)
[2017-12-17 03:05] VITALS: BP 132/78; PULSE 110; TEMP 36.9; O2SAT 98
[2017-12-17] MEDS: MoRPHine SULFATE 2 MG/ML CARP IV PRN (03:16)
[2017-12-17] MEDS: ROPIVACAINE 5MG/ML 30 ML 150 MG, BUPIVACAINE/EPINEPHR 0.5% MPF 30 ML, KETOROLAC TROMETH... INFIL SCH ×7 (06:00)
[2017-12-17] MEDS: ONDANSETRON INJ 2 MG/ML 2 ML VIAL IV PRN (06:33)
[2017-12-17] MEDS: ACETAMINOPHEN IV 1,000 MG in EMPTY BAG 0 ML IV SCH (06:33)
[2017-12-17] MEDS ORDERED: HYDROmorphone INJ 1 MG/ML SYR IV PRN (06:45)
[2017-12-17] MEDS ORDERED: HYDROmorphone HCL 2 MG TAB PO PRN (06:45)
[2017-12-17] MEDS ORDERED: KETOROLAC TROMETHAMINE 15 MG/ML VIAL IV PRN (06:45)
--- NOTE | 2017-12-17 06:56 | PROGRESS NOTE ---
DATE: 12/17/2017 SUBJECTIVE: Postop day #1 status post left total hip replacement. Does have some nausea based on medications particularly to morphine. She denies any chest pain, shortness of breath, fever, chills. No headache. OBJECTIVE: VITAL SIGNS: Stable. She has been tachy, that is baseline for her. ABDOMEN: Soft, nontender. EXTREMITIES: Calves nontender. Neurovascular check bilateral lower extremity is normal. Wound dressing clean, dry and intact. The a.m. labs are pending. ASSESSMENT AND PLAN: Doing a little bit sluggishly, needs to get more motivated and move better. She has pain issues based on right hip, severe joint disease, low back, severe degenerative disk disease lumbar spine, history of bilateral knee issues with knee replacement. At this point in time, adjust pain medications, discontinue the morphine, change the Dilaudid, use Zofran also add Toradol 15 mg q. 6 hours p.r.n. and intermittent Tylenol. We would also add oral Tylenol. Social service assessing for potential placement though she will need in facility type treatment based on overall poor mobility and safety issues. Coumadin per nomogram.
[2017-12-17 07:29] LABS: BASO % 0.1 %; BASO ABS # 0.01 K/uL (0-0.2); HEMATOCRIT 37.8 % (37-47); HEMOGLOBIN 12.6 g/dL (12.0-16.0); IG# 0.01 K/uL (0.00-0.02); LYMPH % 8.2 %; LYMPH ABS # 0.87 K/uL (1.2-3.4); MEAN CELL VOLUME 91.3 fL (80-100); MEAN CORPUSCULAR HEMOGLOBIN 30.4 pg (25-34); MEAN CORPUSCULAR HGB CONC 33.3 g/dl (32-36); MEAN PLATELET VOLUME 10.1 fL (7.4-10.4); MONO % 8.5 %; MONO ABS # 0.91 K/uL (0.11-0.59); NEUT % 83.1 %; NEUT ABS # 8.85 K/uL (1.4-6.5); PLATELET COUNT 219 K/uL (130-400); RED CELL DISTRIBUTION WIDTH CV 13.6 % (11.5-14.5); RED CELL DISTRIBUTION WIDTH SD 45.5 fL (36.4-46.3); WHITE BLOOD COUNT 10.65 K/uL (4.8-10.8)
[2017-12-17] MEDS ORDERED: DEXAMETHASONE INJ 10 MG in SYRINGE 0 ML IV SCH (07:30)
[2017-12-17 07:35] VITALS: BP 114/74; PULSE 101; TEMP 36.7; O2SAT 98
[2017-12-17 07:35] LABS: INR 1.1 (0.9-1.1)
[2017-12-17] MEDS: OXYCODONE HCL IR 5 MG TAB (IMMEDIATE RELEASE) PO PRN (07:52)
[2017-12-17 08:00] LABS: CALCIUM 8.8 mg/dl (8.5-10.1); CREATININE 0.81 mg/dl (0.60-1.20); POTASSIUM 3.8 mmol/L (3.5-5.1)
[2017-12-17] MEDS: FERROUS GLUCONATE 324 MG TAB PO SCH ×3 (08:50→17:52)
[2017-12-17] MEDS: POTASSIUM CITRATE 10 MEQ TAB PO SCH ×2 (08:50→21:18)
[2017-12-17] MEDS: AMLODIPINE BESYLATE 5 MG TAB PO SCH (08:50)
[2017-12-17] MEDS: DOCUSATE SODIUM 100 MG CAP PO SCH ×2 (08:51→21:18)
[2017-12-17] MEDS: LOSARTAN POTASSIUM 50 MG TAB PO SCH (08:51)
[2017-12-17] MEDS: MULTIVITAMIN TAB PO SCH (08:51)
[2017-12-17] MEDS ORDERED: PANTOprazole SOD 40 MG TAB PO SCH (09:00)
--- NOTE | 2017-12-17 09:19 | Discharge Instructions ---
Discharge Instructions Date of Service Dec 16, 2017. Admission Reason for Admission: Left Hip Degenerative Joint Disease Discharge Discharge Diagnosis / Problem: left hip s/p total hip replacement Discharge Goals Goal(s): Decrease discomfort, Improve function, Increase independence Activity Recommendations Activity Limitations: as noted below Lifting Limitations: gradually increase as tolerated Exercise/Sports Limitations: until after follow-up appointment Shower/Bathe: keep incision dry Driving or Machine Use: No driving until cleared by Dr. Carbajal Weightbearing Status: Left weightbearing (as tolerated) . Instructions / Follow-Up Instructions / Follow-Up New Medicine: * You will likely be taking one or more of these medicines: 1. Percocet - Take, as directed, when you need it, every four to six hours to control your pain. 2. Coumadin - Thins your blood to lessen the chance of forming a blood clot. The dose of this is different for each person and is based on your blood tests that are done twice a week. * The most common side effects of pain medicine and iron are nausea and constipation. If nausea or constipation is too much of a problem or if you have any questions about your new medicines or doses, call [facility] at . We will try to help you manage these issues. VERY IMPORTANT TO READ AND REVIEW" Blood Clots and Blood Thinning Medicine: * You are given Coumadin during the immediate post-operative period to lessen the risk of blood clots forming in your legs and/or lungs. Coumadin is usually given for six weeks after surgery. * The prescription is for 2 mg tablets. At discharge, you should understand your dose and take it all at the same time every day, preferably after dinner. * You need to get your blood checked 1 - 2 times per week for six weeks, or as directed. * If your dose needs to change, we will call you. Do not take your medication on the day of the blood test until we call you. * If you don't hear from us after your blood draws, keep taking the same dose. Pain: * The immediate post-operative period after hip replacement surgery is often quite painful. * You are given a prescription for pain medicine. You should take it, as directed, when you need it, especially before physical therapy and before going to bed. Pain that interferes with sleep is very common and can last several months. * You will likely need pain medicine for the first two to four weeks. It will not stop all of the pain. The pain will lessen and as you feel better, you may change to milder pain medicine such as Tylenol. * The most common side effects of pain medicine are nausea and constipation, so don't take more than you need. Physical Therapy: * Follow the "Hip Precautions Instructions." * In some cases, the geriatric social worker at the hospital will arrange to have a therapist come to your house for the first couple of weeks to help you learn these skills. * You need to practice on your own or with the help of a family member as needed. * When you learn these skills, most of the therapy can be done on your own. Home Exercise: * You were shown a series of exercises in the hospital. Do these exercises three to four times each day including the exercises you were shown in physical therapy. Walking: * Get up and walk several times each day. For the first four weeks, try not to stand or walk for more than one hour at a time. If you do stand or walk for more than one hour, you will not hurt anything, but your leg will likely swell. * As you feel comfortable, you may change from the walker or crutches to a cane and then to independent walking. SELF CARE INSTRUCTIONS AFTER TOTAL HIP REPLACEMENT Until the incision and soft tissues around your hip have healed, there is a possibility that the hip prosthesis could dislocate. A. Observe the following precautions to prevent dislocation: 1. Don't bend your hip greater than 90 degrees. 2. Avoid crossing your legs or ankles while standing or lying. 3. Sit with your feet placed 6 inches apart. 4. When sitting, keep your knees below your hips. Sit on a firm surface, avoid deep, soft chairs and couches. Use an elevated toilet seat in the bathroom. 5. Don't bend over at the waist. Use a long handled shoehorn and a sock aid to help you put on your shoes and socks. A steamboat pilot can help you warp picker objects that are too high or too low to reach. 6. Keep car riding to a minimum for at least one month after surgery. B. Your balance may be shaky for a while. Use crutches or a walker until directed by your doctor. C. Use hand rails when walking on stairs. D. Wear low heeled shoes with non-slip soles. E. Be sure that your floors are free of things that could trip you - throw rugs , electrical cords, small objects. Avoid wet and waxed floors, especially with crutches and canes. F. Try to walk several times a day with rest periods between. G. Continue with all the exercises taught to you in the hospital. Again, make walking a part of your daily routine. VERY IMPORTANT TO READ AND REVIEW A. Take Coumadin, or Lovenox (blood thinning medications) as directed by your doctor. If you are on Coumadin, have a pro-time (blood test) drawn according to your doctor's instructions. This will tell the doctor how well the Coumadin is thinning your blood. B. There are a few signs you need to watch for after you are home. If you notice any of the followin. Increased severe hip pain. Some pain is expected especially when you exercise. 2. Increased swelling in your leg or knee; pain or swelling of the calf muscle in either lower leg. 3. Any fluid drainage from the incision. 4. Shortness of breath or chest pain. TEDs/Elastic Stockings: * The white elastic stockings help limit swelling and prevent blood clots from forming in your legs. The more you wear them, the more they work. * Wear them for six weeks. Prevention of Infection: * Take antibiotics one hour before any dental cleaning, dental work, urological procedure, gastrointestinal procedure or any invasive surgery in order to prevent your new joint from getting infected. * You may get the antibiotics from the doctor performing the procedure or we will call in a prescription to the pharmacy of your choice. Call the office for a prescription at least 2 days prior to your appointment. Things to Watch For: * Drainage from the incision site that occurs more than one week after your surgery. * Severely increased leg pain or swelling. * Increased redness at the incision site. * Fever above 101 degrees Fahrenheit. * Unusual chest pain or shortness of breath. * Unusual pain or burning with urination. Current Hospital Diet Patient's current hospital diet: AHA Diet (Heart Healthy) Discharge Diet Recommended Diet: AHA Diet (Heart Healthy) Procedures Procedures Performed: Left Total Hip Arthroplasty--Uncemented Pending Studies Studies pending at discharge: no Medical Emergencies . Who to Call and When: Medical Emergencies: If at any time you feel your situation is an emergency, please call 911 immediately. . Non-Emergent Contact Non-Emergency issues call your: Primary Care Provider, Surgeon Call Non-Emergent contact if: temperature is above 101, wound has increased drainage, wound has increased redness, wound has increased pain, you have any medication questions . "Provider Documentation" section prepared by Wolf Smith PA-C. . VTE Core Measure Inpt VTE Proph given/why not?: Warfarin (Coumadin), Juan Jose Snyder, SCD's [place] Drug Monitoring Program Search Results: no issues identified
[2017-12-17] MEDS ORDERED: OXYC-57 PO (09:42)
--- NOTE | 2017-12-17 10:07 | Anesthesiology Progress Note ---
Anesthesia Post Op Note Date & Time Dec 17, 2017 at 10:07 Vital Signs Pain Intensity: 6.0 Vital Signs Past 12 Hours Date Time Temp Pulse Resp B/P (MAP) Pulse Ox O2 Delivery O2 Flow Rate FiO2 12/17/17 09:45 36.7 101 17 98 Room Air 12/17/17 07:35 36.7 101 17 114/74 (87) 98 Room Air 12/17/17 03:05 36.9 110 16 132/78 (96) 98 Room Air 12/16/17 23:55 97 Room Air 12/16/17 23:25 36.8 107 16 118/65 (82) 97 Room Air Notes Mental Status: alert / awake / arousable, participated in evaluation Pt Amnestic to Procedure: Yes Nausea / Vomiting: adequately controlled Pain: adequately controlled Airway Patency, RR, SpO2: stable & adequate BP & HR: stable & adequate Hydration State: stable & adequate Neuraxial Anesthesia: was administered, sensory block resolved Anesthetic Complications: no major complications apparent
--- NOTE | 2017-12-17 10:15 | Orthopedic Progress Note ---
Orthopedic Progress Note Date of Service Dec 17, 2017. Subjective Post OP Day: 1 Reports: feeling well, complaints, Denies: chest pain, SOB, nausea / vomiting, light headedness, calf pain Additional Notes: has been out of bed to bathroom. Objective calves soft nontender, N/V intact, hip located, capillary refill less than 2 sec., dressing C/D/I, incision C/D/I, A&O x3, toes mobile, CMS intact Wound looks very good. Minimal drainage on dressing. No active bleeding. Date Time Temp Pulse Resp B/P (MAP) Pulse Ox O2 Delivery O2 Flow Rate FiO2 12/17/17 09:45 36.7 101 17 98 Room Air 12/17/17 07:35 36.7 101 17 114/74 (87) 98 Room Air 12/17/17 03:05 36.9 110 16 132/78 (96) 98 Room Air 12/16/17 23:55 97 Room Air 12/16/17 23:25 36.8 107 16 118/65 (82) 97 Room Air 12/16/17 20:01 36.7 102 18 119/74 (89) 97 Room Air 12/16/17 18:45 Room Air 12/16/17 14:51 36.6 103 18 112/69 (83) 98 Room Air 12/16/17 13:40 100 16 125/75 (92) 99 Room Air 12/16/17 12:36 108 18 139/80 (99) 99 Nasal Cannula 2.0 12/16/17 12:14 97 16 135/79 (97) 100 12/16/17 11:40 36.6 98 16 118/72 (87) 99 Nasal Cannula 2.0 12/16/17 11:40 98 Nasal Cannula 2.0 12/16/17 11:40 98 Nasal Cannula 2.0 12/16/17 11:30 93 18 108/72 98 Nasal Cannula 2 12/16/17 11:20 36.1 89 19 121/74 99 Nasal Cannula 2 12/16/17 11:10 91 16 122/69 99 Nasal Cannula 2 12/16/17 11:00 94 17 116/72 99 Nasal Cannula 2 12/16/17 10:50 119 15 116/55 100 Nasal Cannula 2 12/16/17 10:43 36.2 92 16 111/66 100 Oxymask 10 Laboratory Results 24 Hours: Test 12/17/17 07:10 White Blood Count 10.65 K/uL Red Blood Count 4.14 M/uL Hemoglobin 12.6 g/dL Hematocrit 37.8 % Mean Corpuscular Volume 91.3 fL Mean Corpuscular Hemoglobin 30.4 pg Mean Corpuscular Hemoglobin Concent 33.3 g/dl Platelet Count 219 K/uL Mean Platelet Volume 10.1 fL Neutrophils (%) (Auto) 83.1 % Lymphocytes (%) (Auto) 8.2 % Monocytes (%) (Auto) 8.5 % Eosinophils (%) (Auto) 0.0 % Basophils (%) (Auto) 0.1 % Neutrophils # (Auto) 8.85 K/uL Lymphocytes # (Auto) 0.87 K/uL Monocytes # (Auto) 0.91 K/uL Eosinophils # (Auto) 0.00 K/uL Basophils # (Auto) 0.01 K/uL Prothromb Time International Ratio 1.1 Prothrombin Time 11.4 SECONDS Assessment & Plan Assessment: Left hip post op day 1 total hip arthroplasty Plan: PT/OT today No bed at [place], waiting on insurance auth for [facility] Dressing changed to [facility] vac-wound looks very good Follow up in the office in 1 week for Vac removal. coumadin per nomogram Anticipate D/C tomorrow. Discharge Planning Discharge Planning: [facility] facility Pain Management: Percocet DVT Prophylaxis: TEDs, SCDs, Coumadin Therapy: Physical Therapy
[2017-12-17] MEDS: ALUMINUM/MAGNESIUM/SIMETH (MAALOX MAX) 30 ML UDC PO PRN ×3 (11:21→23:43)
[2017-12-17] MEDS ORDERED: ACETAMINOPHEN 500 MG TAB PO PRN (14:00)
[2017-12-17 15:14] VITALS: BP 130/69; PULSE 107; TEMP 36.9; O2SAT 98
[2017-12-17] MEDS ORDERED: WARFARIN SOD 5 MG TAB PO SCH (16:00)
--- NOTE | 2017-12-17 18:03 | DISCHARGE SUMMARY ---
CHIEF COMPLAINT: Left hip pain. HISTORY OF PRESENT ILLNESS: This is a 72-year-old female admitted for elective left total hip replacement after medically cleared. She has significant disease bilaterally with significant lumbar spine arthritis and stenosis as well as significant knee issues with bilateral total knees in 2002. At this point in time her hospital course has been uneventful, although she does require significant medication for her other joints that have not been replaced. PAST MEDICAL HISTORY: Remarkable for hypertension, elevated cholesterol, osteoarthritis, low back pain, neck pain, GERD, obesity, history of kidney stones. PAST SURGICAL HISTORY: Include bilateral total knee replacements, cholecystectomy, ureteroscopy, lithotripsy and breast biopsy. SOCIAL HISTORY: Reveals she is retired. No tobacco or alcohol use. ALLERGIES: None. FAMILY HISTORY: Noncontributory. CURRENT MEDICATIONS: Include Tylenol, amlodipine, aspirin, atorvastatin, vitamin D, cholestyramine, losartan, Meloxicam, mirabegron, Prilosec, potassium citrate and Benefiber. She will discontinue the Mobic/Meloxicam. She will be placed on Coumadin for DVT prophylaxis, keep INR 1.8-2.2, do not get above 2.2. Likely discharge on 4 mg. PHYSICAL EXAMINATION: Reveals intact CMS to both lower extremities. Has good motion of the left replaced hip: A Prevena wound dressing is in place, please leave in place until she returns to the office for it to be removed. Could be weightbearing as tolerated on the left hip. Back pain and right hip pain p.r.n. use of medications as noted. ASSESSMENT: Overall, doing well status post left total hip replacement. Will go to SNF tomorrow. Follow up in the office in 7-10 days for Prevena wound dressing removal.
--- NOTE | 2017-12-17 18:03 | PROGRESS NOTE ---
DATE: 12/17/2017 The patient is up and ambulatory, feeling better. Had some minor indigestion. She notes it is not a problem. She gets it all the time. She denies shortness of breath, fever, chills, nausea, vomiting or headache. She denies any sweatiness with it. Vital signs are stable. She is afebrile. Usual pulses in the usual range for her. Wound dressing Prevena clean, dry and intact. Is putting full weight on the hip. ASSESSMENT: Doing well status post left total hip replacement. Potential discharge to SNF tomorrow. Adjust GERD medications. No sign of any cardiac issues. Likely based on ketorolac use. Follow carefully.
[2017-12-17] MEDS: MIRABEGRON ER 25 MG TAB PO SCH (21:18)
[2017-12-17] MEDS: ATORVASTATIN 10 MG TAB PO SCH (21:18)
[2017-12-17] MEDS: PANTOprazole SOD 40 MG TAB PO SCH (21:18)
[2017-12-17 23:10] VITALS: BP 114/67; PULSE 112; TEMP 37.4; O2SAT 99
[2017-12-18] MEDS: OXYCODONE HCL IR 5 MG TAB (IMMEDIATE RELEASE) PO PRN (05:13)
[2017-12-18 06:59] VITALS: BP 121/72; PULSE 106; TEMP 36.9; O2SAT 97
--- NOTE | 2017-12-18 07:03 | PROGRESS NOTE ---
DATE: 12/18/2017 Postop day #2 status post left total hip replacement. The patient is doing well. Denies chest pain, shortness of breath, fever, chills, nausea, vomiting or headache. She notes that her back and right hip are the most painful. The left hip is doing well. Neurovascular check, femoral sciatic nerve is normal. Abdomen soft, nontender. INR today is pending. ASSESSMENT: Overall doing well, stable for discharge and transfer to outside facility. She will need this based on her back and right hip problems. If INR again is less than 1.5, discharge on 4 mg of Coumadin; if it is 1.6 or greater, discharge on 2 mg of Coumadin; please make clear that the patient receives dose today prior to leaving the facility here so she does not get an extra dose at the receiving facility. She should check her INR on Friday. Keep INR 1.8 to 2.2. Keep Prevena in place. Return to the office for that to be removed and not removed at the nursing facility.
[2017-12-18 07:14] LABS: INR 1.5 (0.9-1.1)
--- NOTE | 2017-12-18 07:39 | Orthopedic Progress Note ---
Orthopedic Progress Note Date of Service Dec 18, 2017. Subjective Post OP Day: 2 Reports: feeling well, pain controlled w PO medications, Denies: complaints, chest pain, SOB, nausea / vomiting, light headedness, calf pain, using [employer] Objective calves soft nontender, N/V intact, hip located, capillary refill less than 2 sec., dressing C/D/I, incision C/D/I, A&O x3, toes mobile, CMS intact Unable to perform SLRT Date Time Temp Pulse Resp B/P (MAP) Pulse Ox O2 Delivery O2 Flow Rate FiO2 12/18/17 06:59 36.9 106 18 121/72 (88) 97 Room Air 12/17/17 23:51 Room Air 12/17/17 23:10 37.4 112 18 114/67 (83) 99 Room Air 12/17/17 15:40 Room Air 12/17/17 15:14 36.9 107 16 130/69 (89) 98 Room Air 12/17/17 09:45 36.7 101 17 98 Room Air 12/17/17 08:00 Room Air Laboratory Results 24 Hours: Test 12/18/17 06:40 Prothromb Time International Ratio 1.5 Prothrombin Time 15.3 SECONDS Assessment & Plan Assessment: Left hip post op day 2 total hip arthroplasty Plan: Please give first dose of Coumadin before discharge PT/OT today Total Hip precautions WBAT on Left LE with walker assistance No bed at [place], waiting on insurance auth for [facility] keep Prevena in place until 1 wk f/u w/ Wolf Smith Follow up in the office in 1 week for Vac removal. coumadin per nomogram Anticipate D/C tomorrow. Discharge Planning [facility]: [facility] Pain Management: Percocet DVT Prophylaxis: TEDs, SCDs, Coumadin Therapy: Physical Therapy
[2017-12-18] MEDS: MULTIVITAMIN TAB PO SCH (08:30)
[2017-12-18] MEDS: PANTOprazole SOD 40 MG TAB PO SCH (08:30)
[2017-12-18] MEDS: POTASSIUM CITRATE 10 MEQ TAB PO SCH (08:30)
[2017-12-18] MEDS: AMLODIPINE BESYLATE 5 MG TAB PO SCH (08:30)
[2017-12-18] MEDS: LOSARTAN POTASSIUM 50 MG TAB PO SCH (08:30)
[2017-12-18] MEDS: FERROUS GLUCONATE 324 MG TAB PO SCH ×2 (08:30→12:47)
[2017-12-18] MEDS: DOCUSATE SODIUM 100 MG CAP PO SCH (08:30)
[2017-12-18] MEDS ORDERED: WARFARIN SOD 3 MG TAB PO ONE (09:00)
[2017-12-18] MEDS: ALUMINUM/MAGNESIUM/SIMETH (MAALOX MAX) 30 ML UDC PO PRN (12:49)
== END 2017-12-18 14:04 | DRG 470 ==
LOC: C.ACU 06:04 → C.3E 06:30 → ENRESERV 10:58
PROVIDERS: ADMIT Physical Medicine & Rehabilitation Sports Medicine; ATTEND Physical Medicine & Rehabilitation Sports Medicine
PROC: 0SRB0JA Replacement of Left Hip Joint with Synthetic Substitute, Uncemented, Open Approach (ICD-10-PCS; principal; 2017-12-16 09:00)
DX: M16.0 Bilateral primary osteoarthritis of hip (principal); I10 Essential (primary) hypertension; E78.00 Pure hypercholesterolemia, unspecified; N32.81 Overactive bladder; K21.9 Gastro-esophageal reflux disease without esophagitis; M54.5 Low back pain; M54.2 Cervicalgia; E66.9 Obesity, unspecified; Z68.34 Body mass index [BMI] 34.0-34.9, adult; Z87.442 Personal history of urinary calculi; Z96.653 Presence of artificial knee joint, bilateral; Z90.49 Acquired absence of other specified parts of digestive tract; Z98.890 Other specified postprocedural states; Z79.1 Long term (current) use of non-steroidal anti-inflammatories (NSAID); Z79.82 Long term (current) use of aspirin; Z79.899 Other long term (current) drug therapy

== ENCOUNTER → 2018-01-06 | Outpatient (CLI) | payer BC, OTHER ==
[~2018-01-06] MED LIST changes: -ASPI-427 PO; -CEFAZOLIN 2000MG IV PUSH 15 ML IV SCH; -LACTATED RINGER'S 1000ML 1,000 ML IV SCH; -LACTATED RINGER'S 1000ML 500 ML IV SCH; -LACTATED RINGER'S 1000ML IV SCH; -MELO15TA4 PO; -OMEG5CAP PO; +OXYC-57 PO; -TRANEXAMIC ACID INJ 1,000 MG in SYRINGE 0 ML IV SCH; +WARF2TAB PO
[2018-01-06 18:00] LABS: BASO % 0.8 %; BASO ABS # 0.04 K/uL (0-0.2); HEMOGLOBIN 12.6 g/dL (12.0-16.0); LYMPH ABS # 1.15 K/uL (1.2-3.4); MEAN CELL VOLUME 93.3 fL (80-100); MEAN CORPUSCULAR HEMOGLOBIN 30.1 pg (25-34); MEAN CORPUSCULAR HGB CONC 32.3 g/dl (32-36); MEAN PLATELET VOLUME 10.3 fL (7.4-10.4); NEUT % 64.2 %; PLATELET COUNT 381 K/uL (130-400); RED CELL DISTRIBUTION WIDTH CV 14.3 % (11.5-14.5); RED CELL DISTRIBUTION WIDTH SD 48.5 fL (36.4-46.3); WHITE BLOOD COUNT 4.99 K/uL (4.8-10.8)
[2018-01-06 18:26] LABS: ALBUMIN 3.3 gm/dl (3.4-5.0); ALT/SGPT 66 U/L (12-78); BLOOD UREA NITROGEN 21 mg/dl (7-18); CALCIUM 8.8 mg/dl (8.5-10.1); CARBON DIOXIDE 30 mmol/L (21-32); CREATININE 0.74 mg/dl (0.60-1.20); GLUCOSE 93 mg/dl (70-99); POTASSIUM 3.7 mmol/L (3.5-5.1); SODIUM 138 mmol/L (136-145)
[2018-01-06 18:29] LABS: ALKALINE PHOSPHATASE 165 U/L (45-117); AST/SGOT 42 U/L (15-37); TOTAL PROTEIN 6.5 gm/dl (6.4-8.2)
== END | disposition home or self-care (01) ==
LOC: C.LABMFLN 12:39
PROVIDERS: ATTEND Family Medicine
DX: D64.9 Anemia, unspecified (principal); R74.0 Nonspecific elevation of levels of transaminase and lactic acid dehydrogenase [LDH]

== ENCOUNTER → 2018-02-09 | Outpatient (CLI) | payer BC, OTHER | END | disposition home or self-care (01) | LOC: C.RDSM 17:43 | PROVIDERS: ATTEND Physical Medicine & Rehabilitation Sports Medicine | DX: Z96.642 Presence of left artificial hip joint (principal) ==